=== PATIENT | female | born 1975 | race Two or more races ===

== ENCOUNTER 2024-12-05 03:04 | Emergency (ER) | payer OTHER ==
[~2024-12-05] VITALS: Ht 170.2 cm; Wt 83.5 kg
[2024-12-05] MEDS ORDERED: INSULIN SYRING1 EA29 MC (03:36)
[2024-12-05] MEDS ORDERED: CEFTRIAXONE SODIUM 1,000 MG VIAL IM STA (05:20)
[2024-12-05] MEDS ORDERED: KETOROLAC TROMETHAMINE 60 MG VIAL IM STA (05:20)
[2024-12-05] MEDS ORDERED: KETO10TA2 PO (05:24)
[2024-12-05] MEDS ORDERED: CEPHALEXIN750 MG PO (05:24)
== END 2024-12-05 05:45 ==
LOC: ER 03:05
DX: H60.8X2 Other otitis externa, left ear (principal); E11.9 Type 2 diabetes mellitus without complications; Z79.4 Long term (current) use of insulin

== ENCOUNTER 2025-07-27 07:26 | Outpatient (CLI) | payer OTHER ==
[~2025-07-27 07:26] MED LIST: CEPHALEXIN750 MG PO; INSULIN SYRING1 EA29 MC; KETO10TA2 PO
== END 2025-07-27 07:27 | disposition home or self-care (01) ==
LOC: NUCLEAR 07:26
DX: M79.604 Pain in right leg (principal); M79.605 Pain in left leg; M25.551 Pain in right hip; M25.552 Pain in left hip

== ENCOUNTER 2025-07-28 07:43 | Outpatient (CLI) | payer OTHER | END 2025-07-28 07:44 | disposition home or self-care (01) | LOC: NUCLEAR 07:43 | DX: M79.604 Pain in right leg (principal); M79.605 Pain in left leg; M25.551 Pain in right hip; M25.552 Pain in left hip ==

== ENCOUNTER 2025-07-28 09:27 | Outpatient (CLI) | payer OTHER | END 2025-07-28 09:42 | disposition home or self-care (01) | LOC: RAD 09:27 | DX: M25.551 Pain in right hip (principal); M25.552 Pain in left hip ==